=== PATIENT | male | born 1965 | race Caucasian/White ===

== ENCOUNTER 2017-06-25 16:28 | Emergency (ER) | payer OTHER ==
[2017-06-25 17:16] LABS: ALBUMIN 4.2 g/dL (3.4-5.0); ALKALINE PHOSPHATASE 107 U/L (46-116); ALT (SGPT) 45 U/L (10-68); BILIRUBIN - TOTAL 0.39 mg/dL (0.2-1.3); CALC OSMOLALITY 286 mosm/kg (275-300); CALCIUM 9.3 mg/dL (8.5-10.1); CARBON DIOXIDE 26.4 mmol/L (21.0-32.0); CHLORIDE - SERUM 102 mmol/L (98-107); GLUCOSE 161 mg/dL (74-106); POTASSIUM - SERUM 3.8 mmol/L (3.5-5.1); PROTEIN - SERUM 7.9 g/dL (6.4-8.2); SODIUM 141 mmol/L (136-145); UREA NITROGEN 21 mg/dL (7-18); eGFR NON AFRICAN AMERICAN 84 mL/min (90-120)
== END 2017-06-25 17:50 | disposition home or self-care (01) ==
LOC: D.ER 16:28
PROVIDERS: Emergency Medicine
DX: I10 Essential (primary) hypertension (principal); R51 Headache

== ENCOUNTER 2018-08-18 22:21 | Emergency (ER) | payer OTHER ==
[~2018-08-18] VITALS: Ht 162.6 cm; Wt 84.1 kg
[2018-08-18 22:29] VITALS: Ht 162.6 cm; Wt 84.1 kg
[2018-08-18] MEDS ORDERED: CATAPRES0.1 MG PO (22:31)
[2018-08-18] MEDS ORDERED: LOPRESSOR25 MG PO (22:31)
[2018-08-18] MEDS ORDERED: COZAAR100 MG PO (22:31)
[2018-08-19] MEDS ORDERED: CATAPRES0.1 MG PO (00:47)
[2018-08-19 01:05] VITALS: BP 130/88
== END 2018-08-19 01:05 | disposition home or self-care (01) ==
LOC: D.ER 22:21
DX: I10 Essential (primary) hypertension (principal); R51 Headache

== ENCOUNTER 2019-10-21 09:45 | Emergency (ER) | payer OTHER ==
[~2019-10-21] VITALS: Ht 167.6 cm; Wt 81.8 kg
[~2019-10-21 09:45] MED LIST: CATAPRES0.1 MG PO; COZAAR100 MG PO; LOPRESSOR25 MG PO
[2019-10-21 09:55] VITALS: Ht 167.6 cm; Wt 81.8 kg
[2019-10-21] MEDS ORDERED: NORVASC10 MG PO (09:57)
[2019-10-21] MEDS ORDERED: CATAPRES0.1 MG PO (09:58)
[2019-10-21] MEDS ORDERED: LIPITOR10 MG PO (09:59)
[2019-10-21] MEDS ORDERED: GLUCOPHAGE500 MG PO (09:59)
[2019-10-21 10:21] LABS: BASOPHILS 0.4 % (0-2); EOSINOPHILS 7.4 % (0-7); HEMATOCRIT 42.8 % (42.0-54.0); HEMOGLOBIN 15.5 g/dL (13.5-17.5); IMMATURE GRANULOCYTES 0.4 % (0-5); LYMPHOCYTES 26.6 % (15-50); MCH 32.5 pg (26.0-34.0); MCHC 36.2 g/dL (31.0-37.0); MCV 89.7 fL (80.0-100.0); NEUTROPHILS 58.2 % (40-80); PLATELET COUNT 153 10x3/uL (130-400); RBC 4.77 10x6/uL (4.20-6.10)
[2019-10-21 10:37] LABS: CALC OSMOLALITY 281 mosm/kg (275-300); CALCIUM 9.3 mg/dL (8.5-10.1); CHLORIDE - SERUM 103 mmol/L (98-107); CREATININE - SERUM 0.9 mg/dL (0.6-1.3); GLUCOSE 115 mg/dL (74-106); POTASSIUM - SERUM 3.9 mmol/L (3.5-5.1); SODIUM 140 mmol/L (136-145); UREA NITROGEN 18 mg/dL (7-18); eGFR NON AFRICAN AMERICAN > 90 mL/min (90-120)
[2019-10-21 10:47] LABS: APPEARANCE CLEAR (CLEAR); BILIRUBIN NEGATIVE (NEGATIVE); COLOR YELLOW (YELLOW); GLUCOSE NEGATIVE (NEGATIVE); KETONE NEGATIVE (NEGATIVE); NITRITE NEGATIVE (NEGATIVE); PROTEIN NEGATIVE (NEGATIVE); UROBILINOGEN NORMAL (NORMAL)
[2019-10-21 10:53] LABS: ALBUMIN 4.5 g/dL (3.4-5.0); ALKALINE PHOSPHATASE 92 U/L (46-116); ALT (SGPT) 40 U/L (10-68); BILIRUBIN - TOTAL 0.43 mg/dL (0.2-1.3); PROTEIN - SERUM 8.1 g/dL (6.4-8.2)
[2019-10-21 12:04] VITALS: BP 127/81
== END 2019-10-21 11:53 | disposition home or self-care (01) ==
LOC: D.ER 09:45
PROVIDERS: Family Medicine
DX: I10 Essential (primary) hypertension (principal); E11.9 Type 2 diabetes mellitus without complications; Z79.84 Long term (current) use of oral hypoglycemic drugs

== ENCOUNTER 2020-02-20 14:34 | Emergency (ER) | payer OTHER ==
[~2020-02-20] VITALS: Ht 167.6 cm; Wt 81.8 kg
[~2020-02-20 14:34] MED LIST changes: +GLUCOPHAGE500 MG PO; +LIPITOR10 MG PO; +NORVASC10 MG PO
[2020-02-20 14:43] VITALS: Ht 167.6 cm; Wt 81.8 kg
[2020-02-20 15:52] VITALS: BP 132/87
== END 2020-02-20 15:53 | disposition home or self-care (01) ==
LOC: D.ER 14:34
DX: S00.01XA Abrasion of scalp, initial encounter (principal); X58.XXXA Exposure to other specified factors, initial encounter; E11.9 Type 2 diabetes mellitus without complications; Z79.84 Long term (current) use of oral hypoglycemic drugs; I10 Essential (primary) hypertension